=== PATIENT | male | born 1970 | race Hispanic/Latino ===

== ENCOUNTER 2021-10-12 08:40 | Inpatient (IN) | payer BC, OTHER ==
[2021-10-12] MEDS ORDERED: Morphine 4 MG/ML VIAL ONE (08:54)
[2021-10-12] MEDS ORDERED: Ondansetron PF 4 MG/2 ML Vial ONE (08:55)
[2021-10-12] MEDS ORDERED: Dextrose 50% Abboject 50 ML SYRINGE SLOW IVP PRN (10:40)
[2021-10-12] MEDS ORDERED: Ondansetron PF 4 MG/2 ML Vial IVP PRN (10:40)
[2021-10-12] MEDS ORDERED: hydrALAZINE 20 MG/ML VIAL SLOW IVP PRN (10:40)
[2021-10-12] MEDS ORDERED: Morphine 4 MG/ML VIAL SLOW IVP PRN (10:40)
[2021-10-12] MEDS ORDERED: Dextrose 5% in Water 1,000 ML IV PRN (10:40)
[2021-10-12] MEDS ORDERED: traMADol HCl 50 MG TAB PO PRN (10:42)
[2021-10-12 10:47] LABS: #Eosinphils 0.2 thou/uL (0.0-0.7); #Lymphocytes 3.8 thou/uL (1.20-3.40); #Monocytes 0.4 thou/uL (0.11-0.59); #Neutrophils 4.5 thou/uL (1.40-6.50); %Basophils 0.4 % (0.0-1.0); %Lymphocytes 42.7 % (21.0-51.0); %Monocytes 4.3 % (0.0-10.0); %Neutrophils 50.7 % (42.0-75.0); Hemoglobin 16.5 g/dL (14.0-18.0); Mean Corpuscular HGB CONC 33.3 g/dL (32.0-36.0); Mean Corpuscular Hemoglobin 30.3 pg (27.0-31.0); Mean Corpuscular Volume 90.9 fL (78.0-98.0); Mean Platelet Volume 7.6 fL (7.4-10.4); Platelet Count 227 thou/uL (130-400); RBC Distribution Width 11.8 % (11.5-14.5); Red Blood Cell (RBC) Count 5.45 mill/uL (4.70-6.10); White Blood Cell (WBC) Count 8.8 thou/uL (4.8-10.8)
[2021-10-12 10:48] LABS: INR-International Normal Ratio 0.9; PTT 24.9 sec (22.9-36.1); Prothrombin Time 12.1 sec (12.0-14.7)
[2021-10-12 10:58] LABS: ALT (SGPT) 25 U/L (8-55); AST (SGOT) 20 U/L (5-34); Albumin 4.6 g/dL (3.5-5.0); Alkaline Phosphatase 69 U/L (40-110); Anion Gap 15 mmol/L (10-20); BUN (Urea Nitrogen) 20 mg/dL (8.9-20.6); Bilirubin, Total 0.7 mg/dL (0.2-1.2); Calc. Creatinine Clearance 0 mL/min (70-130); Calcium 9.4 mg/dL (7.8-10.44); Carbon Dioxide 27 mmol/L (22-29); Chloride 101 mmol/L (98-107); Globulin 2.9 g/dL (2.4-3.5); Glucose 143 mg/dL (70-105); Magnesium 1.9 mg/dL (1.6-2.6); Phosphorus 2.1 mg/dL (2.3-4.7); Potassium 3.6 mmol/L (3.5-5.1); Protein, Total 7.5 g/dL (6.0-8.3); Sodium 139 mmol/L (136-145)
[2021-10-12] MEDS ORDERED: Ketorolac Tromethamine 30 MG/ML VIAL ONE (11:06)
[2021-10-12] MEDS ORDERED: Iopamidol-370 76% 500 ML 1 ML ONE ×2 (11:43→12:03)
[2021-10-12] MEDS ORDERED: Iopamidol 370 76% 50 ML VIAL FS ONE (12:03)
[2021-10-12] MEDS ORDERED: Acetaminophen 500 MG TAB PO SCH (12:15)
[2021-10-12 12:17] LABS: SARS-CoV-2 NAA Rapid Test Not Detected (NotDetected)
[2021-10-12] MEDS ORDERED: Potassium Phosphate 30 MMOL in Sodium Chloride 0.9% 250 ML 250 ML IVPB SCH (12:30)
[2021-10-12] MEDS ORDERED: Sodium Chloride 0.9% 1,000 ML IV SCH (12:30)
[2021-10-12 12:58] VITALS: BMI 28.8
[2021-10-12] MEDS: Gabapentin 300 MG CAP PO SCH ×2 (14:19→20:40)
[2021-10-12] MEDS: Acetaminophen 500 MG TAB PO SCH (18:29)
[2021-10-12] MEDS: traMADol HCl 50 MG TAB PO SCH ×2 (18:30→20:40)
[2021-10-12] MEDS: Ibuprofen 200 MG TAB PO SCH (18:30)
[2021-10-12] MEDS: Senokot S 8.6-50 MG TAB PO SCH (20:39)
[2021-10-12] MEDS: Famotidine 20 MG TAB PO SCH (20:40)
[2021-10-13] MEDS: Acetaminophen 500 MG TAB PO SCH ×5 (02:32→22:44)
[2021-10-13] MEDS: Ibuprofen 200 MG TAB PO SCH ×3 (02:32→18:20)
[2021-10-13] MEDS: traMADol HCl 50 MG TAB PO SCH ×5 (05:16→22:46)
[2021-10-13 05:31] LABS: #Eosinphils 0.2 thou/uL (0.0-0.7); #Lymphocytes 2.1 thou/uL (1.20-3.40); #Monocytes 0.7 thou/uL (0.11-0.59); %Basophils 0.2 % (0.0-1.0); %Eosinophils 2.1 % (0.0-10.0); %Lymphocytes 23.3 % (21.0-51.0); %Monocytes 7.3 % (0.0-10.0); %Neutrophils 67.2 % (42.0-75.0); Hemoglobin 14.4 g/dL (14.0-18.0); Mean Corpuscular HGB CONC 32.2 g/dL (32.0-36.0); Mean Corpuscular Hemoglobin 30.1 pg (27.0-31.0); Mean Corpuscular Volume 93.3 fL (78.0-98.0); Platelet Count 160 thou/uL (130-400); RBC Distribution Width 11.9 % (11.5-14.5); Red Blood Cell (RBC) Count 4.79 mill/uL (4.70-6.10); White Blood Cell (WBC) Count 8.9 thou/uL (4.8-10.8)
[2021-10-13 05:57] LABS: Anion Gap 10 mmol/L (10-20); BUN (Urea Nitrogen) 15 mg/dL (8.9-20.6); Calc. Creatinine Clearance 130 mL/min (70-130); Calcium 8.4 mg/dL (7.8-10.44); Carbon Dioxide 26 mmol/L (22-29); Chloride 107 mmol/L (98-107); Glucose 108 mg/dL (70-105); Potassium 4.1 mmol/L (3.5-5.1); Sodium 139 mmol/L (136-145)
[2021-10-13 06:03] LABS: Phosphorus 3.7 mg/dL (2.3-4.7)
[2021-10-13] MEDS: Famotidine 20 MG TAB PO SCH ×2 (07:40→21:44)
[2021-10-13] MEDS: Gabapentin 300 MG CAP PO SCH ×3 (07:40→21:42)
[2021-10-13] MEDS: Senokot S 8.6-50 MG TAB PO SCH ×2 (07:41→21:40)
[2021-10-13] MEDS: Polyethylene Glycol 3350 17 GM Packet PO SCH (07:41)
[2021-10-13] MEDS: Cyclobenzaprine 10 MG TAB PO PRN ×2 (08:57→21:41)
[2021-10-13] MEDS: Lidocaine 5% Patch TD SCH (10:25)
[2021-10-13] MEDS ORDERED: Atorvastatin Calcium 20 MG TAB PO SCH (21:00)
[2021-10-13] MEDS ORDERED: valACYclovir 500 MG TAB PO SCH (21:00)
[2021-10-13] MEDS ORDERED: Transdermal Patch Removal TOP SCH (23:00)
[2021-10-14] MEDS: Ibuprofen 200 MG TAB PO SCH ×2 (00:45→08:52)
[2021-10-14] MEDS: traMADol HCl 50 MG TAB PO SCH ×2 (05:23→11:42)
[2021-10-14] MEDS: Acetaminophen 500 MG TAB PO SCH ×2 (05:25→11:42)
[2021-10-14] MEDS: Famotidine 20 MG TAB PO SCH (08:52)
[2021-10-14] MEDS: Senokot S 8.6-50 MG TAB PO SCH (08:52)
[2021-10-14] MEDS: Gabapentin 300 MG CAP PO SCH (08:52)
[2021-10-14] MEDS: Polyethylene Glycol 3350 17 GM Packet PO SCH (08:53)
[2021-10-14] MEDS: Lidocaine 5% Patch TD SCH (11:42)
[2021-10-14 12:14] VITALS: BP 146/84; TEMP 98
== END 2021-10-14 13:00 | disposition home or self-care (01) | DRG 200 ==
LOC: ERS 08:40 → SURG B 10:45
PROVIDERS: ADMIT Surgery; ATTEND Surgery
DX: S27.0XXA Traumatic pneumothorax, initial encounter (principal); S22.31XA Fracture of one rib, right side, initial encounter for closed fracture; S42.101A Fracture of unspecified part of scapula, right shoulder, initial encounter for closed fracture; T79.7XXA Traumatic subcutaneous emphysema, initial encounter; S42.001A Fracture of unspecified part of right clavicle, initial encounter for closed fracture; Z20.822 Contact with and (suspected) exposure to COVID-19; I10 Essential (primary) hypertension; E78.5 Hyperlipidemia, unspecified; B00.9 Herpesviral infection, unspecified; E04.1 Nontoxic single thyroid nodule; E78.00 Pure hypercholesterolemia, unspecified; W11.XXXA Fall on and from ladder, initial encounter; Y93.89 Activity, other specified; Y99.0 Civilian activity done for income or pay
CPT/HCPCS: 36415; 70498; 71045; 71260; 80048; 80053; 83690; 83735; 84100; 85025; 85027; 85610; 85730; 86850; 86900; 86901; 96374; 96375; J1885; J2270; J2405; J7050; Q9967; U0002

== ENCOUNTER 2022-03-19 14:57 | Outpatient (CLI) | payer OTHER | END 2022-03-19 14:58 | disposition home or self-care (01) | LOC: CT 14:57 | PROVIDERS: ATTEND Orthopaedic Surgery | DX: S42.001D Fracture of unspecified part of right clavicle, subsequent encounter for fracture with routine healing (principal); S22.31XD Fracture of one rib, right side, subsequent encounter for fracture with routine healing ==

== ENCOUNTER 2022-05-14 05:55 | Day surgery (SDC) | payer OTHER ==
[2022-05-13 10:43] VITALS: BMI 27.9
[2022-05-14] MEDS ORDERED: fentaNYL Citrate/PF 100 MCG/2 ML SYRINGE ONE (06:26)
[2022-05-14] MEDS ORDERED: Midazolam HCl 2 mg/2 ml Vial ONE (06:26)
[2022-05-14] MEDS ORDERED: Ketamine 50 MG/ML (10ML VIAL) ONE (06:26)
[2022-05-14] MEDS ORDERED: Sodium Chloride 0.9% 100 ML ONE (06:48)
[2022-05-14] MEDS ORDERED: CEFAZOLIN 2 GM VIAL ONE (06:48)
[2022-05-14] MEDS ORDERED: Ketorolac Tromethamine 30 MG/ML VIAL ONE (07:07)
[2022-05-14] MEDS ORDERED: Ondansetron PF 4 MG/2 ML Vial ONE (07:07)
[2022-05-14] MEDS ORDERED: Rocuronium Bromide 10 MG/ML (10ML VIAL) ONE (07:07)
[2022-05-14] MEDS ORDERED: Phenylephrine 10 MG/ML VIAL ONE (07:07)
[2022-05-14] MEDS ORDERED: PROPOFOL 200 MG/20 ML VIAL ONE (07:07)
[2022-05-14] MEDS ORDERED: Glycopyrrolate 0.2 MG/ML 5 ML SYRINGE ONE (07:07)
[2022-05-14] MEDS ORDERED: Dexamethasone 20 MG/5 ML VIAL ONE (07:07)
[2022-05-14] MEDS ORDERED: Lidocaine 1% MPF 2 ML VIAL ONE (07:07)
[2022-05-14] MEDS ORDERED: NEOSTIGMINE 3 MG/3 ML SYR 3 MG/3 ML SYRINGE ONE (07:07)
[2022-05-14] MEDS ORDERED: ePHEDrine 50 MG/ML VIAL ONE (07:07)
[2022-05-14] MEDS ORDERED: Bupivacaine/Epinephrine 0.25% 30 ML VIAL ONE (08:52)
[2022-05-14] MEDS ORDERED: Fentanyl 100 MCG/2 ML VIAL ONE (09:54)
== END 2022-05-14 11:30 | disposition home or self-care (01) ==
LOC: SDC 05:55
PROVIDERS: ATTEND Orthopaedic Surgery
PROC: 0PS904Z Reposition Right Clavicle with Internal Fixation Device, Open Approach (ICD-10-PCS; principal; 2022-05-14)
PROC: 0PU907Z Supplement Right Clavicle with Autologous Tissue Substitute, Open Approach (ICD-10-PCS; principal; 2022-05-14)
DX: S42.021K Displaced fracture of shaft of right clavicle, subsequent encounter for fracture with nonunion (principal); M75.01 Adhesive capsulitis of right shoulder; E78.5 Hyperlipidemia, unspecified; B00.9 Herpesviral infection, unspecified; Z86.16 Personal history of COVID-19; Z79.899 Other long term (current) drug therapy; W17.89XD Other fall from one level to another, subsequent encounter
CPT/HCPCS: 76000; C1713; C1874; J0690; J1100; J1885; J2250; J2370; J2405; J2704; J3010; J3490

== ENCOUNTER 2022-09-10 15:03 | Outpatient (CLI) | payer OTHER | END 2022-09-10 15:04 | disposition home or self-care (01) | LOC: TBSIIMAG 15:03 | PROVIDERS: ATTEND Orthopaedic Surgery | DX: M24.811 Other specific joint derangements of right shoulder, not elsewhere classified (principal); S43.431A Superior glenoid labrum lesion of right shoulder, initial encounter; M75.111 Incomplete rotator cuff tear or rupture of right shoulder, not specified as traumatic; M25.411 Effusion, right shoulder ==